=== PATIENT | female | born 1980 | race Caucasian/White ===

== ENCOUNTER 2016-12-19 18:50 | Emergency (ER) | payer MEDICAID ==
[~2016-12-19] VITALS: Ht 162.6 cm; Wt 91.2 kg
[~2016-12-19 18:50] MED LIST: PREN1TAB81 PO
[2016-12-19 19:26] VITALS: BP 112/71
== END 2016-12-19 20:03 | disposition home or self-care (01) ==
LOC: ER 18:56
DX: M22.2X1 Patellofemoral disorders, right knee (principal)
CPT/HCPCS: A4606; Z7610

== ENCOUNTER 2017-03-12 11:06 | Inpatient (IN) | payer MEDICAID, OTHER ==
[~2017-03-12] VITALS: Ht 167.6 cm; Wt 81.6 kg
--- NOTE | 2017-03-12 11:10 | NUR ---
PATIENT PRESENTS TO ER, SENT BY PMD, TO R/O APPENDICITIS. PATIENT C/O RUQ ABD PAIN, WITH N/V X 3 DAYS. PATIENT IS A/OX 4. BREATHING EVEN AND UNLABORED. NO SOB. VITALS STABLE. SAFETY AND COMFORT MEASURES IN PLACE. AWAITING MD ORDERS.
[2017-03-12] MEDS ORDERED: IV NS 0.9% 1,000 ML IV ONE (11:30)
[2017-03-12] MEDS ORDERED: ONDANSETRON HCL/PF - ER 4 MG/2 ML VIAL IV ONE (11:30)
[2017-03-12] MEDS ORDERED: ONDANSETRON HCL/PF 4 MG/2 ML VIAL ONE (11:34)
[2017-03-12 12:04] LABS: APPEARANCE,URINE Slightly Cloudy (CLEAR); BILIRUBIN,URINE Negative (NEGATIVE); BLOOD, URINE Moderate Ery/uL (NEGATIVE); KETONES,URINE Negative (NEGATIVE); LEUKOCYTE ESTERASE ,URINE Negative (NEGATIVE); NITRITE, URINE Negative (NEGATIVE); PH,URINE 5.5 (5.0-8.0); PROTEIN,URINE Negative (NEGATIVE); UGLUCOSE Negative (NEGATIVE)
[2017-03-12 12:04] LABS: BASOPHILS # (AUTO) 0.1 /CMM (0.0-0.2); BASOPHILS % (AUTO) 0.7 % (0.0-2.0); EOSINOPHILS # (AUTO) 0.2 /CMM (0.0-0.7); EOSINOPHILS % (AUTO) 1.8 % (0.0-6.0); HEMATOCRIT 42 % (33-45); HEMOGLOBIN 13.8 g/dL (11.5-14.8); LYMPHOCYTES # (AUTO) 3.7 /CMM (0.8-4.8); LYMPHOCYTES % (AUTO) 34.7 % (20.0-44.0); MEAN CORPUSCULAR HEMOGLOBIN 28 PG (26.0-33.0); MEAN CORPUSCULAR HGB CONC 33 g/dl (31.0-36.0); MEAN CORPUSCULAR VOLUME 85 fL (82-100); MONOCYTES # (AUTO) 0.5 /CMM (0.1-1.30); MONOCYTES % (AUTO) 4.7 % (2.0-12.0); NEUTROPHILS # (AUTO) 6.2 /CMM (1.8-8.9); NEUTROPHILS % (AUTO) 58.1 % (43.0-81.0); PLATELET COUNT (AUTO) 215 /CMM (150-450); RDW COEFFICIENT OF VARIATION 12.8 (11.5-15.0); RED BLOOD CELL COUNT(AUTO) 4.98 MIL/uL (4.0-5.2); WHITE BLOOD COUNT (AUTO) 10.6 K/uL (4.3-11.0)
[2017-03-12 12:05] LABS: COLOR,URINE Dark Yellow (YELLOW)
[2017-03-12 12:09] LABS: BACTERIA,URINE None seen /HPF (None Seen); MUCUS,URINE Few /LPF (None Seen); SQUAMOUS EPITHELIAL CELL,UR Few /HPF (None Seen); WBC,URINE 0-3 /HPF (0-3)
[2017-03-12 12:12] LABS: CALCIUM, SERUM 9.3 mg/dL (8.5-10.1); CREATININE 0.7 mg/dL (0.6-1.3); POTASSIUM 3.9 mmol/L (3.5-5.1)
[2017-03-12 12:18] LABS: ALBUMIN 3.9 g/dL (3.4-5.0); BILIRUBIN,DIRECT 0.1 mg/dL (0.0-0.2); BILIRUBIN,TOTAL 0.7 mg/dL (0.2-1.0); TOTAL PROTEIN, SERUM 7.9 g/dL (6.4-8.2)
--- NOTE | 2017-03-12 13:36 | NUR ---
CALLED NURSING SUP. FOR MS BED
--- NOTE | 2017-03-12 13:36 | NUR ---
DR.RUTHERFORD GENO LEASE BUYER
--- NOTE | 2017-03-12 13:38 | NUR ---
CALLED , SURGEON TELLER, LEFT MESSAGE ON VOICEMAIL
[2017-03-12] MEDS ORDERED: PIPERACILLIN /TAZOBACTAM 3.375 G in IV D5W 50 ML IV ONE (14:00)
--- NOTE | 2017-03-12 14:03 | NUR ---
MS 322-2
--- NOTE | 2017-03-12 14:03 | NUR ---
CALLED PHARMACY FOR DOUGLAS
[2017-03-12] MEDS ORDERED: CITA20TA11 PO (14:10)
[2017-03-12] MEDS ORDERED: MORPHINE SULFATE INJ 2 MG/ML DISP.SYRIN IV PRN (19:00)
[2017-03-12] MEDS ORDERED: MORPHINE SULFATE INJ 2 MG/ML DISP.SYRIN IV ONE (19:00)
[2017-03-12] MEDS ORDERED: ZOLPIDEM TARTRATE 5 MG TABLET PO PRN (19:00)
[2017-03-12] MEDS ORDERED: HYDROMORPHONE 1 MG/1 ML DISP.SYRIN IV PRN (19:00)
[2017-03-12] MEDS ORDERED: MAGNESIUM HYDROXIDE 30 ML UDC PO PRN (19:00)
[2017-03-12] MEDS ORDERED: ACETAMINOPHEN 325 MG TABLET PO PRN (19:00)
[2017-03-12] MEDS ORDERED: Z GUARD REMEDY 2 OZ OINT TP PRN (19:00)
[2017-03-12] MEDS ORDERED: MAG HYDROX/AL HYDROX/SIMETH 30 ML UDC PO PRN (19:00)
--- NOTE | 2017-03-12 19:18 | NUR ---
RECEIVED REPORT FROM RITA CASTELLANOS FOR CHRIS. PT APPEARS COMFORTABLE.
--- NOTE | 2017-03-12 19:31 | NUR ---
CALLED [facility] FLOOR TO GIVE REPORT, NO BED/ RN ASSIGNED AT THIS TIME.
--- NOTE | 2017-03-12 19:39 | NUR ---
REPORT GIVEN TO RITA MUJICA FOR CHRIS.
--- NOTE | 2017-03-12 19:40 | NUR ---
PT ASSIGNED TO MS 204
--- NOTE | 2017-03-12 20:19 | NUR ---
RN JENSEN CHANGED ROOM TO 204-1
--- NOTE | 2017-03-12 20:21 | NUR ---
PT REASSIGNED TO [place] BED 207
--- NOTE | 2017-03-12 20:30 | NUR ---
MS2 PRODUCTION PATTERN MAKER NOTES ADMITTED THIS 36 Y.O. 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
--- NOTE | 2017-03-12 20:35 | NUR ---
PT TRANSFERRED VIA GURNEY TO [place] BED 207
[2017-03-12] MEDS: ONDANSETRON HCL/PF 4 MG/2 ML VIAL IVP PRN (21:29)
--- NOTE | 2017-03-12 21:29 | NUR ---
MS2 RN NOTES C/O NAUSEA,ZOFRAN 4MG IVP ADMINISTERED ORDERED.
[2017-03-12] MEDS: CITALOPRAM HYDROBROMIDE 20 MG TABLET PO SCH (22:00)
[2017-03-12] MEDS: IV NS 0.9% 1,000 ML IV PRN (22:04)
--- NOTE | 2017-03-12 22:04 | NUR ---
MS 2 RN NOTES STARTED ON NS 1LITER AT 75ML/HR RATE VIA IV PUMP.
[2017-03-12 23:18] VITALS: BP 94/46
--- NOTE | 2017-03-13 | NUR ---
MS RN NOTES STARTED ON ZOSYN 3.375GM IVPB ORDERED.
[2017-03-13] MEDS: PIPERACILLIN /TAZOBACTAM 3.375 G in IV D5W 50 ML IV SCH ×4 (00:39→17:29)
--- NOTE | 2017-03-13 03:00 | NUR ---
MS RN NOTES SLEEPING,KEPT WARM AND COMFORTABLE.
--- NOTE | 2017-03-13 06:17 | NUR ---
MS RN NOTES SLEPT MOST OF THE NIGHT.NO N/V NOTED.ZOFRAN IV EFFECTIVE.ABDOMINAL PAIN TOLERABLE.IN NO ACUTE DISTRESS.WILL ENDORSE TO DAY NURSE FOR CHRIS.
--- NOTE | 2017-03-13 07:30 | NUR ---
MS RN AM NOTES PT IN BED, AAO X 3, SPEAKS FARSI, ON RA, NAD, NO SOB, RESPIRATION UNLABORED, DENIES ANY PAIN AT THIS TIME. .NO SKIN ISSUES,AMBULATORY.NS AT 75 ML/HR TO RIGHT HAND #20 INFUSING WELL, SITE CLEAR. ON CLEAR LIQUID. AMBULATORY. NO SKIN ISSUES. BED ON LOWEST POSITION AND LOCKED.CALL LIGHT IN REACH,NEEDS ANTICIPATED.WILL CONTINUE TO MONITOR.
[2017-03-13 07:34] LABS: BASOPHILS % (AUTO) 0.5 % (0.0-2.0); EOSINOPHILS # (AUTO) 0.2 /CMM (0.0-0.7); EOSINOPHILS % (AUTO) 1.7 % (0.0-6.0); HEMATOCRIT 39 % (33-45); HEMOGLOBIN 12.9 g/dL (11.5-14.8); LYMPHOCYTES # (AUTO) 3.3 /CMM (0.8-4.8); LYMPHOCYTES % (AUTO) 32.6 % (20.0-44.0); MEAN CORPUSCULAR HEMOGLOBIN 29 PG (26.0-33.0); MEAN CORPUSCULAR HGB CONC 34 g/dl (31.0-36.0); MEAN CORPUSCULAR VOLUME 85 fL (82-100); MONOCYTES # (AUTO) 0.6 /CMM (0.1-1.30); MONOCYTES % (AUTO) 5.9 % (2.0-12.0); NEUTROPHILS # (AUTO) 5.9 /CMM (1.8-8.9); NEUTROPHILS % (AUTO) 59.3 % (43.0-81.0); PLATELET COUNT (AUTO) 219 /CMM (150-450); RDW COEFFICIENT OF VARIATION 13.3 (11.5-15.0); RED BLOOD CELL COUNT(AUTO) 4.54 MIL/uL (4.0-5.2)
[2017-03-13 07:45] LABS: CALCIUM, SERUM 8.4 mg/dL (8.5-10.1); CREATININE 0.8 mg/dL (0.6-1.3); MAGNESIUM 2.2 mg/dL (1.8-2.4); PHOSPHORUS 3.7 mg/dL (2.5-4.9); POTASSIUM 3.7 mmol/L (3.5-5.1)
[2017-03-13 08:00] VITALS: BP 115/67
--- NOTE | 2017-03-13 09:30 | NUR ---
MS RN NOTES PATIENT ROUNDS. PATIENT NOT IN ANY PAIN OR DISTRESS. RESTING.
[2017-03-13] MEDS: IV NS 0.9% 1,000 ML IV PRN (12:15)
--- NOTE | 2017-03-13 12:15 | NUR ---
MS RN NOTES ZOSYN IV STARTED.
[2017-03-13 16:00] VITALS: BP 116/81
--- NOTE | 2017-03-13 17:29 | NUR ---
MS RN NOTES ZOSYN IV STARTED.
[2017-03-13 18:00] VITALS: BP 116/81
--- NOTE | 2017-03-13 19:30 | NUR ---
RN NOTE; RECEIVED PT IN BED AWAKE AND ALERT. BREATHING EVENLY. NO SOB. NAD. NO C/O PAIN AT THIS TIME. ON ONGOING IVF HYDRATION. OLIVIA WELL. NEEDS ATTENDED . CALL LIGHT WITHIN REACH,. WILL CONT TO MONITOR
[2017-03-13 20:00] VITALS: BP 100/59
[2017-03-13] MEDS: HYDROCODONE/APAP 5/325MG 1 EACH TABLET PO PRN (21:46)
[2017-03-13] MEDS: CITALOPRAM HYDROBROMIDE 20 MG TABLET PO SCH (21:46)
--- NOTE | 2017-03-13 21:46 | NUR ---
NORCO GIVEN ORDERED FOR C/O MOD ABD PAIN. WILL CONT TO MONITOR,
[2017-03-14] MEDS: PIPERACILLIN /TAZOBACTAM 3.375 G in IV D5W 50 ML IV SCH ×5 (00:39→23:37)
[2017-03-14] MEDS: ONDANSETRON HCL/PF 4 MG/2 ML VIAL IVP PRN ×2 (01:57→19:52)
--- NOTE | 2017-03-14 01:58 | NUR ---
ZOFRAN GIVEN ORDERED FOR C/O NAUSEA. WILL CONT TO MONITOR,
[2017-03-14] MEDS: IV NS 0.9% 1,000 ML IV PRN (06:11)
--- NOTE | 2017-03-14 06:32 | NUR ---
PT IN BED SLEEPING, AROUSES EASILY. BREATHING EVENLY. NO SOB. NAD. PAIN UNDER CONTROL W/ USE OF PAIN MEDICATIONS. NO EPISODE OF VOMITING.NEEDS ATTENDED. ASSISTED W/ ADLS. CALL LIGHT WITHIN REACH. WILL CONT TO MONITOR AND WILL ENDORSE TO AM SHIFT FOR CHRIS.
[2017-03-14 08:00] VITALS: BP 114/74
--- NOTE | 2017-03-14 09:30 | NUR ---
MS RN NOTES PATIENT ROUNDS. PATIENT NOT IN ANY PAIN OR DISTRESS. RESTING.
--- NOTE | 2017-03-14 09:35 | NUR ---
MS RN NOTES SEEN BY DR. MILES. PLACED ON SOFT DIET FOR NOW.
[2017-03-14] MEDS: HYDROCODONE/APAP 5/325MG 1 EACH TABLET PO PRN ×2 (10:23→23:40)
--- NOTE | 2017-03-14 12:13 | NUR ---
MS RN NOTES ZOSYN IV STARTED.
[2017-03-14 16:00] VITALS: BP 118/81
--- NOTE | 2017-03-14 17:22 | NUR ---
MS RN NOTES STARTED ZOSYN IV. PT'S AT BEDSIDE. CONSENT FOR SURGERY SIGNED.
[2017-03-14 18:00] VITALS: BP 118/81
--- NOTE | 2017-03-14 18:33 | NUR ---
MS RN NOTES PT RESTING IN BED, NOT IN ANY DISTRESS. ROOM AIR. FOR SCHEDULED SURGERY YONY. CONSENTS SIGNED. NPO POST MIDNIGHT. IVF INFUSING WELL. SITE CLEAR. SEEN BY DR. MILES EARLIER. ALL NEEDS MET. NO OTHER SIGNIFICANT CHANGES. CALL LIGHT WITHIN REACH. WILL ENDORSE TO NEXT SHIFT FOR CHRIS.
[2017-03-14 18:46] LABS: INR 0.96 (0.87-1.13)
--- NOTE | 2017-03-14 19:30 | NUR ---
RN NOTE; RECEIVED PT IN BED AWAKE AND ALERT. BREATHING EVENLY. NO SOB. NAD.REPORTED ON AND OFF ABD PAIN .ON ONGOING IVF HYDRATION. OLIVIA WELL. NPO STATUS POST MN AND SX IN AM WAS EXPLAINED TO THE PT W/ UNDERSTANDING. NEEDS ATTENDED . CALL LIGHT WITHIN REACH,. WILL CONT TO MONITOR
--- NOTE | 2017-03-14 19:54 | NUR ---
dilaudid and zofran given as ordered for c/o severe abd pain and nausea. will cont to monitor,
[2017-03-14 20:00] VITALS: BP 106/72
[2017-03-14 20:04] VITALS: BP 106/72
[2017-03-14] MEDS: CITALOPRAM HYDROBROMIDE 20 MG TABLET PO SCH (21:09)
--- NOTE | 2017-03-14 23:42 | NUR ---
norco given for c/o moderate abd pain. will cont to monitor.
[2017-03-15] VITALS (9 sets, daily range): BP systolic 105–145; BP diastolic 64–90
[2017-03-15] MEDS: IV NS 0.9% 1,000 ML IV PRN (06:03)
[2017-03-15] MEDS: PIPERACILLIN /TAZOBACTAM 3.375 G in IV D5W 50 ML IV SCH ×4 (06:03→23:29)
--- NOTE | 2017-03-15 06:31 | NUR ---
RN NOTE; PT IN BED SLEEPING AROUSES EASILY. BREATHING EVENLY. NO SOB. NAD. SKIN WARM AND DRY. NO ACUTE EVENT DURING THE NIGHT. PAIN MEDICATION AND ZOFRAN EFFECTIVE. ON ONGOING IVF HYDRATION AND IV ATB. OLIVIA WELL. NPO FOR SX TODAY. NEEDS MET. CALL LIGHT WITHIN REACH. WILL CONT TO MONITOR AND WILL ENDORSE TO AM SHIFT FOR CHRIS.
--- NOTE | 2017-03-15 07:30 | NUR ---
MS/RN Patient received Patient received from it support technician. NPO for surgery this morning, IV fluids infusing at 75ml/hr, no signs of infiltration. Consent forms signed by patient and placed in front of chart. Call light within reach, will continue to monitor and ensure safety.
--- NOTE | 2017-03-15 09:45 | NUR ---
MS/RN OR Patient taken to OR, medical record with patient.
[2017-03-15] MEDS ORDERED: LIDOCAINE 0.5% HCL 50 ML VIAL ONE (10:01)
[2017-03-15] MEDS ORDERED: BUPIVACAINE 0.25% 75 MG/30 ML VIAL ONE (10:01)
[2017-03-15] MEDS ORDERED: FENTANYL PF 100MCG/2ML AMPUL ONE (10:36)
[2017-03-15] MEDS ORDERED: HYDROMORPHONE 2 MG/1 ML SDV ONE (11:37)
--- NOTE | 2017-03-15 12:06 | NUR ---
MS/RN Back from OR Patient back in room following lap joao. Incision clean and dry, open to air. Vital signs stable. Complaining of abdominal pain, via biscuit maker, explained that pain was due to gas used during surgery to enable doctor to preform the surgery. Call light within reach, will continue to monitor and ensure safety.
--- NOTE | 2017-03-15 12:48 | NUR ---
MS/RN Post Op Patient remains in stable condition since surgery. Vital signs recorded as per hospital policy. Ambulating to bathroom, able to pass urine without any difficulty. Tolerating clear liquid diet, no nausea. States that pain is bearable at this time and does not want any medication.
[2017-03-15] MEDS: HYDROCODONE/APAP 5/325MG 1 EACH TABLET PO PRN ×2 (17:33→23:34)
--- NOTE | 2017-03-15 18:07 | NUR ---
MS/RN End note Patient has remained stable since surgery, vital signs within normal limits, no fever or swelling noted. Ambulating to and from bathroom, voiding and passing gas. Tolerating clear liquid diet, no nausea or vomiting. IV fluids infusing at 75ml/hr. Will continue to monitor and endorse to warehouse supervisor 3rd shift.
--- NOTE | 2017-03-15 19:30 | NUR ---
MS2 RN INITIAL NOTE RECEIVED REPORT FROM CASEY SALINAS. S/P LAP ROLO 03/15. PT IS IN BED. A/A/0 X4, FARSI SPEAKING BUT UNDERSTANDS SOME [place]. PT STATES SHE IS IN PAIN. 08/06. LUNG SOUNDS CLEAR. BOWEL SOUNDS PRESENT BUT HYPOACTIVE. IV PATENT AND INTACT W NS @75ML/HR. CONTINENT TO BOTH URINE AND STOOL. AMBULATORY WITH BRP. PULSES PRESENT. BED IN LOW LOCKED POSITION. CALL LIGHT WITHIN REACH.
--- NOTE | 2017-03-15 20:03 | NUR ---
MS2 RN S/P LAP ROLO 03/15. PT COMPLAINING OF PAIN IN UPPER EPIGASTRIC AREA 02/05, NORCO GIVEN 2HRS AGO BUT NOT EFFECTIVE. BOWEL SOUNDS PRESENT BUT HYPOACTIVE. BP CURRENTLY 105/64. SPOKE WITH DR RADER ABOUT LOW BP AND PAIN. DR RADER STATED TO ADMINISTER DILAUDID AND MONITOR BP. WILL CONTINUE TO MONITOR.
[2017-03-15] MEDS: HYDROMORPHONE INJ 2 MG/ML DISP.SYRIN IV PRN (20:09)
[2017-03-15] MEDS: CITALOPRAM HYDROBROMIDE 20 MG TABLET PO SCH (21:27)
--- NOTE | 2017-03-15 22:50 | NUR ---
MS2 RN PT SAYS SHE IS "TIRED OF BEING IN BED" AND WANTS TO WALK. DISCONNECTED IV AND PT AMBULATED INDEPENDENTLY WITHOUT ASSISTANCE. PT WALKED DOWN THE LOVELACE WITH CAUTION, GUARDING HER ABDOMEN AND TOOK VERY SLOW STEPS. PT RETURNED TO BED SAFELY. NO DISTRESS. PAIN 08/06. WILL CONTINUE TO MONITOR.
[2017-03-16] MEDS: IV NS 0.9% 1,000 ML IV PRN (01:01)
--- NOTE | 2017-03-16 01:07 | NUR ---
MS2 RN PT IN BED. SLEEPING BUT EASILY [place]. NO DISTRESS NOTED. PAIN IS TOLERABLE PER PATIENT. 06/08. BED IN LOW LOCKED POSITION. CALL LIGHT WITHIN REACH. WILL CONTINUE TO MONITOR.
[2017-03-16] MEDS: PIPERACILLIN /TAZOBACTAM 3.375 G in IV D5W 50 ML IV SCH ×3 (05:30→17:17)
[2017-03-16] MEDS: HYDROMORPHONE INJ 2 MG/ML DISP.SYRIN IV PRN ×3 (05:33→16:38)
--- NOTE | 2017-03-16 07:30 | NUR ---
MS/RN Patient received Patient received from nightclub manager. Denies pain, lap sites open to air and clean and dry. Call light within reach, will continue to monitor.
[2017-03-16 08:00] VITALS: BP 103/66
[2017-03-16 08:21] LABS: BASOPHILS % (AUTO) 0.3 % (0.0-2.0); EOSINOPHILS # (AUTO) 0.1 /CMM (0.0-0.7); EOSINOPHILS % (AUTO) 0.4 % (0.0-6.0); HEMATOCRIT 37 % (33-45); HEMOGLOBIN 12.1 g/dL (11.5-14.8); LYMPHOCYTES # (AUTO) 3.5 /CMM (0.8-4.8); LYMPHOCYTES % (AUTO) 27.5 % (20.0-44.0); MEAN CORPUSCULAR HEMOGLOBIN 28 PG (26.0-33.0); MEAN CORPUSCULAR HGB CONC 33 g/dl (31.0-36.0); MEAN CORPUSCULAR VOLUME 86 fL (82-100); MONOCYTES # (AUTO) 0.9 /CMM (0.1-1.30); MONOCYTES % (AUTO) 6.9 % (2.0-12.0); NEUTROPHILS # (AUTO) 8.3 /CMM (1.8-8.9); NEUTROPHILS % (AUTO) 64.9 % (43.0-81.0); PLATELET COUNT (AUTO) 222 /CMM (150-450); RDW COEFFICIENT OF VARIATION 13.5 (11.5-15.0); RED BLOOD CELL COUNT(AUTO) 4.27 MIL/uL (4.0-5.2); WHITE BLOOD COUNT (AUTO) 12.8 K/uL (4.3-11.0)
[2017-03-16] MEDS: PANTOPRAZOLE 40 MG TABLET.DR PO SCH (08:26)
[2017-03-16 08:36] LABS: ALBUMIN 3.2 g/dL (3.4-5.0); BILIRUBIN,TOTAL 0.9 mg/dL (0.2-1.0); CALCIUM, SERUM 8.7 mg/dL (8.5-10.1); CREATININE 0.9 mg/dL (0.6-1.3); POTASSIUM 3.8 mmol/L (3.5-5.1); TOTAL PROTEIN, SERUM 6.5 g/dL (6.4-8.2)
--- NOTE | 2017-03-16 10:00 | NUR ---
MS/RN S/B Keon Nesbitt, CUSTOMER SUCCESS SPECIALIST Seen by Keon - diet advanced to soft, encouraged to ambulate more in hallways. For possible discharge to home later today if okay with Dr Roa.
[2017-03-16] MEDS: HYDROCODONE/APAP 5/325MG 1 EACH TABLET PO PRN ×2 (10:19→20:04)
--- NOTE | 2017-03-16 10:24 | NUR ---
MS/RN Pain [place] given for abdominal pain scale 6/10. Will monitor effectiveness.
[2017-03-16 16:00] VITALS: BP 108/69
--- NOTE | 2017-03-16 16:00 | NUR ---
MS/RN Heplock New heplock inserted in left hand 22g.
--- NOTE | 2017-03-16 18:08 | NUR ---
MS/RN End note Remains in stable condition, continues to complain of abdominal pain, medication administered as needed. Incision sites clean and dry. Will endorse to customer service consultant.
[2017-03-16 20:00] VITALS: BP 105/55
--- NOTE | 2017-03-16 20:10 | NUR ---
RN NOTES RECEIVED PATIENT UP ON CHAIR, ALERT AND ORIENTED X4, CALM, NO SOB, COMPLAINING OF ABDOMINAL PAIN OF 4/10, GIVEN NORCO 5/325 1 TAB PO, LEFT HAND SALINE LOCK IS PATENT AND SECURED WITH DRESSING. EDUCATED PATIENT TO SIT DOWN FOR 5 MINUTES BEFORE STANDING UP. PATIENT HAS EPISODES OF DIZZINESS UPON STANDING, NEEDS ATTENDED, AND CHILD AT THE BEDSIDE, CALL LIGHT WITHIN REACH.
[2017-03-16] MEDS: CITALOPRAM HYDROBROMIDE 20 MG TABLET PO SCH (21:26)
[2017-03-17] MEDS: HYDROCODONE/APAP 5/325MG 1 EACH TABLET PO PRN ×2 (00:44→11:29)
[2017-03-17] MEDS: PIPERACILLIN /TAZOBACTAM 3.375 G in IV D5W 50 ML IV SCH ×3 (00:44→11:29)
--- NOTE | 2017-03-17 06:39 | NUR ---
RN NOTES PATIENT IN BED, RESTING COMFORTABLY, NO SOB, BREATHING IS EVEN AND UNLABORED, PROVIDED PAIN MEDICATION DURING SHIFT WITH 4/10 ABDOMINAL PAIN, NO VOMITING, ABLE TO TOLERATE FLUIDS, ABLE TO AMBULATE TOLERATED. FOR DISCHARGE TODAY. NEEDS ATTENDED, ALL DUE MEDICATIONS GIVEN, CALL LIGHT WITHIN REACH
--- NOTE | 2017-03-17 07:23 | NUR ---
RN NOTES REPORT RECEIVED FROM MANAGER COMMUNITY DEVELOPMENT. PATIENT IS SLEEPING. NO SOB OR DISTRESS NOTED. PATIENT DOES NOT APPEAR TO BE IN PAIN, NO FACIAL GRIMACE NOTED. BED IN A LOW POSITION, CALL LIGHT WITHIN PATIENT REACH. WILL CONTINUE TO MONITOR.
[2017-03-17 08:04] VITALS: BP 112/58
[2017-03-17] MEDS: PANTOPRAZOLE 40 MG TABLET.DR PO SCH (08:11)
[2017-03-17] MEDS ORDERED: HYDR-3326 PO (10:15)
[2017-03-17 12:51] LABS: BASOPHILS % (AUTO) 0.4 % (0.0-2.0); EOSINOPHILS # (AUTO) 0.2 /CMM (0.0-0.7); EOSINOPHILS % (AUTO) 2.3 % (0.0-6.0); HEMATOCRIT 39 % (33-45); HEMOGLOBIN 12.7 g/dL (11.5-14.8); LYMPHOCYTES # (AUTO) 2.4 /CMM (0.8-4.8); LYMPHOCYTES % (AUTO) 24.9 % (20.0-44.0); MEAN CORPUSCULAR HEMOGLOBIN 28 PG (26.0-33.0); MEAN CORPUSCULAR HGB CONC 33 g/dl (31.0-36.0); MEAN CORPUSCULAR VOLUME 87 fL (82-100); MONOCYTES # (AUTO) 0.6 /CMM (0.1-1.30); MONOCYTES % (AUTO) 6.7 % (2.0-12.0); NEUTROPHILS # (AUTO) 6.4 /CMM (1.8-8.9); NEUTROPHILS % (AUTO) 65.7 % (43.0-81.0); PLATELET COUNT (AUTO) 207 /CMM (150-450); RDW COEFFICIENT OF VARIATION 13.6 (11.5-15.0); RED BLOOD CELL COUNT(AUTO) 4.54 MIL/uL (4.0-5.2); WHITE BLOOD COUNT (AUTO) 9.7 K/uL (4.3-11.0)
[2017-03-17 12:55] LABS: CALCIUM, SERUM 9.1 mg/dL (8.5-10.1); CREATININE 0.8 mg/dL (0.6-1.3); POTASSIUM 3.6 mmol/L (3.5-5.1)
[2017-03-17 13:02] LABS: ALBUMIN 3.3 g/dL (3.4-5.0); BILIRUBIN,TOTAL 0.5 mg/dL (0.2-1.0); TOTAL PROTEIN, SERUM 6.9 g/dL (6.4-8.2)
--- NOTE | 2017-03-17 13:25 | NUR ---
RESIDENT INSPECTOR NOTE DISCHARGE INSTRUCTIONS GIVEN TO PATIENT AND ABLE TO UNDERSTAND. ALL PAPERWORK SIGNED AND BELONGINGS ACCOUNTED FOR. PATIENT GIVEN CONTACT INFORMATION FOR DR LIVE WITH INSTRUCTIONS TO FOLLOW UP WITH THE MD WITHIN 1-2 WEEKS. IV DISCONNECTED AND PRESSURE APPLIED. NO BLEEDING NOTED AT THE SITE. FLU SHOT NOT GIVEN PATIENT REFUSES VACCINE. PATIENT LEFT IN STABLE CONDITION, VIA WHEEL CHAIR WITH HAZARDOUS WASTE MATERIAL TECHNICIAN AND FAMILY. NO SOB OR DISTRESS NOTED. PATIENT DENIES PAIN. PATIENT DISCHARGED TO HOME. PRESCRIPTIONS FOR PAIN GIVEN TO PATIENT.
== END 2017-03-17 13:25 | disposition home or self-care (01) | DRG 263 ==
LOC: ER 11:10 → MED 18:45 → MEDSG2 20:28
PROVIDERS: ADMIT Internal Medicine; ATTEND Internal Medicine
DX: K80.20 Calculus of gallbladder without cholecystitis without obstruction (principal); E83.51 Hypocalcemia; K76.0 Fatty (change of) liver, not elsewhere classified; F32.9 Major depressive disorder, single episode, unspecified; K43.9 Ventral hernia without obstruction or gangrene; E66.3 Overweight; Z68.29 Body mass index [BMI] 29.0-29.9, adult; D72.829 Elevated white blood cell count, unspecified
CPT/HCPCS: 36415; 71010-TC; 76705-TC; 80048-TC; 80053-TC; 80076-TC; 81000-TC; 83690-TC; 83735-TC; 84100-TC; 84703-TC; 85025-TC; 85610-TC; 87081-TC; A4606; J0690; J1100; J1170; J1885; J2405; J2543; J2704; J3010; J3490; J7030; J7060; Z7610